=== PATIENT | male | born 2000 | race Caucasian/White ===

== ENCOUNTER → 2018-03-29 11:45 | Outpatient (CLI) | payer SELFPAY ==
--- NOTE | 2018-03-29 11:55 | CT_ITS ---
STUDY: CT MAXILLOFACIAL SINUSES REASON FOR EXAM: Male, 17 years old. Frontal and occipital pain. RADIATION DOSAGE (If Supplied By Facility): CTDIvol = ( 33.06 ) mGy, DLP = ( 837.98 ) mGycm TECHNIQUE: The patient was scanned in a multi detector CT scanner. High resolution axial imaging was performed without the administration of intravenous contrast material. Sagittal and coronal images were reconstructed. Individualized dose optimization techniques were used for this CT. COMPARISON: None. FINDINGS: FRONTAL SINUSES: Normal aeration, without mucosal inflammatory disease. ETHMOIDAL SINUSES: Mild mucosal thickening of the ethmoid sinuses. MAXILLARY SINUSES: Mucosal thickening of the maxillary sinus bilaterally slightly worse on the right side. SPHENOIDAL SINUSES: Normal aeration, without mucosal inflammatory disease. There is patency of the bilateral maxillary infundibuli with normal uncinate processes, ethmoid bullae, and hiatus semilunaris. Normal bilateral middle turbinates. There is hypertrophy of the bilateral inferior nasal turbinates. Normal midline nasal septum. There is patency of the bilateral nasal airways. The visualized osseous structures are normal. The visualized bilateral orbital contents are normal. CT/Sinus/Facial Bone IMPRESSION: Mild mucosal thickening of the ethmoid and maxillary sinuses are Hypertrophy of the inferior turbinates bilaterally. Electronically Signed: Luciano Short MD at 12:44 EDT Tel [phone], Service support ,
== END ==
PROVIDERS: Visit Provider Otolaryngology
DX: J32.2 Chronic ethmoidal sinusitis (principal); J32.0 Chronic maxillary sinusitis; J34.3 Hypertrophy of nasal turbinates; R51 Headache
CPT/HCPCS: 70486

== ENCOUNTER → 2018-10-11 15:03 | Outpatient (CLI) | payer SELFPAY ==
[2018-10-11 11:40] VITALS: BMI 20.7
--- OUTSIDE RECORDS SUMMARY | 2018-12-14 03:29 | XMS RPT_ITS ---
:2000 Author Organization [facility] Care Team Providers Name Role Phone Gee POON, Lesia Mckenna Attending Unavailable ROSE, MAHESH Primary Care Unavailable Khoa Schwab Attending Unavailable Khoa Schwab Referring Unavailable Primay Care Physicia, No Primary Care Unavailable Khoa Schwab Attending Unavailable Primay Care Physicia, No Referring Unavailable Primay Care Physicia, No Primary Care Unavailable Andrae Zamora Attending Unavailable Andrae Zamora Referring Unavailable Primay Care Physicia, No Primary Care Unavailable Khoa Schwab Attending Unavailable Primay Care Physicia, No Referring Unavailable Khoa Schwab Attending Unavailable Primay Care Physicia, No Referring Unavailable PROBLEMS PROBLEMS DATE TYPE CONDITION / CODE ATTENDING STATUS SOURCE 10/12/2018 Unknown J02.9 - Acute Khoa Schwab Active [place] pharyngitis, Community unspecified / Hospital J02.9(ICD-10) Repository 2018 Unknown R51 - Headache / Khoa Schwab Active [place] R51(ICD-10) [facility] Repository 2018 Unknown M62.838 - Other Khoa Schwab Active [facility] muscle spasm / Community M62.838(ICD-10) Hospital Repository 07/27/2018 Unknown G44.209 - Khoa Schwab Active [facility] Tension-type Community headache, Hospital unspecified, not Repository intractable / G44.209(ICD-10) 07/06/2018 Unknown J32.9 - Chronic Wartmann, Active [facility] sinusitis, Andrae Community unspecified / Hospital J32.9(ICD-10) Repository PROCEDURES PROCEDURES No Procedure Records FoundRESULTS RESULTS Observed: 10/11/2018 Status: F Source: [place] CULTURE, R/O STREP A 3:19 PM [facility] REPOSITORY BENJAMIN Culture * This cultures intended use is to screen for Beta Streptococcus A only. All other pathogens and potential pathogens will not be screened for or reported. If a complete workup of all potential pathogens is indicated an order for a routine throat culture is required. No Group A Beta Streptococcus isolated. Performed By: #### M100.010 #### [facility] [address] [place], [place], [id number] URGENT CARE VISIT Observed: 10/11/2018 Status: F Source: [place] REPORT 11:40 AM [facility] REPOSITORY [facility] [address] [place] [address] [address] [place], [place] [address] OFFICE VISIT Date of Service: 10/11/18 MR#: [id number] Acct: [id number] Name: RON CASTRO Merritt Rep #: [id number] : 2000 Provider: Khoa MORENO Age/Sex: 18/M [place] [facility] [place]: Signed Intake Vital Signs10/11/18 Height 6 ft 1 in 10/11/18 Weight: 157 lb 10/11/18 Body Mass Index (BMI) 20.7 10/11/18 Blood Pressure 110/78 10/11/18 Blood Pressure Location Lt brachial Intake Visit Reasons: SORE THROAT Chief Complaint: sore throat Rn Military Required: No Accompanied by: self Is patient in pain?: No Allergies amoxicillin Allergy (Verified 10/11/18 11:09) Unknown Medications cyclobenzaprine 5 mg tablet 5 mg PO TID PRN #30 tab 09/06/18 [Rx Confirmed 10/11/18] [facility] Medical History Migraines (Acute) Family History Grandfather Heart disease Social History Smoking Status: Never smoker alcohol intake: never HPI HPI Chief Complaint: sore throat Details: RON CASTRO, is a 18 M who presents to the office today for complaint of sore throat and nasal drainage for the past 24 hours. Patient is concerned for strep as he has had this multiple times in the past and is requesting a strep test at this time. He states the pain is sharp and made worse with swallowing. He denies fever, chills, sweats. No nausea, vomiting, diarrhea. He has not taken any medications for this current episode. No other associated symptoms or alleviating/aggravating factors. ROS Const Constitutional: No fever(s), headache(s), anorexia, chills or abnormal sleep pattern ENT ENT: Positive for post nasal drip, sore throat, nasal congestion and nasal discharge; no headache(s) or ear pain Resp Respiratory: No shortness of breath Cardio Cardiology: No irregular heart rhythm or palpitations Gastro GI: No nausea/dyspepsia Neuro Neurology: No headache(s) or behavioral changes Psych Psychiatric: No abnormal sleep pattern, No behavioral changes Exam Const General: cooperative, healthy appearing [facility] Head: normal to inspection Ears: hearing grossly normal bilaterally, TM's normal bilaterally, EAC's normal Nose: external nose normal, nasal discharge clear Mouth: oral mucosae normal Throat: abnormal tonsil bilaterally Resp Effort AND Inspection: normal respiratory effort Auscultation: Bilateral: Clear to Auscultation Cardio Palpation: normal PMI Rate: regular rate Rhythm: regular rhythm Neuro General: CN's II-XI intact bilaterally, alert Psych Appearance: grossly normal Mental Status: mental status grossly normal Results BMSRAPIDSTREPA Office Rapid Strep A Negative Last Edit by Melissa Johnson on 10/11/18 11:35 Assessment AND Plan Problems 1. Acute pharyngitis, unspecified etiology J02.9 Status Acute Plan Negative rapid strep in the office today, patient advised we will send the swab for culture and advise him of any positive results. Encouraged to get plenty of rest, drink lots of clear liquids, and use Tylenol or Ibuprofen (unless contraindicated) for fever and comfort. Patient also educated on other symptomatic management techniques. To be seen in 7-10 days if no improvement; sooner if worsening of symptoms. Patient advised of potential red flags and when appropriate to report to the ED. Patient verbalized understanding and agreement with all the above. Orders Orders: Coding Level of Care Code Off vis,est,level 3 Diagnoses Acute pharyngitis, unspecified etiology J02.9 Pharyngitis/tonsillitis etiology: unspecified etiology 10/11/18 1140 <Electronically signed by Khoa MORENO> Date Khoa MORENO Cosigner Signature: Date (if applicable) CC: URGENT CARE VISIT Observed: 09/07/2018 Status: F Source: [place] REPORT 8:35 AM [facility] REPOSITORY [facility] [address] [place] [address] OFFICE VISIT Date of Service: 09/06/18 MR#: [id number] Acct: [id number] Name: RON CASTRO Rep #: [id number] : 2000 Provider: Khoa MORENO Age/Sex: 18/M [place] [facility] [place] Status: Signed Intake Vital Signs09/06/18 Height 6 ft 1 in Intake Visit Reasons: HEADACHE/MIGRAINE Allergies amoxicillin Allergy (Verified 09/06/18 13:04) Unknown Medications cyclobenzaprine 5 mg tablet 5 mg PO TID PRN #30 tab 09/06/18 [Rx Confirmed 09/06/18] PFSH Medical History Migraines (Acute) Family History Grandfather Heart disease Social History Smoking Status: Never smoker alcohol intake: never HPI HPI Details: RON CASTRO, is a 18 M who presents to the office today for complaint of a recurrence of his tension type headache. Patient states that this headache is nearly the exact same as his previous tension type headache which she was treated here for in April of this year. He states that the Toradol injection as well as the cyclobenzaprine did take his headaches away and he has not had a recurrence until now. Patient states he has had shoulder and neck stiffness for the past 2-1/2 weeks and has been seen by a chiropractor during this time with little to no relief of the tension and headache. He denies any vision changes or difficulties. No syncopal or near syncopal episodes. No change in mental status. He has had no fever, chills, sweats. No other associated symptoms or alleviating/aggravating factors. ROS Const Constitutional: Positive for headache(s); no chills, fever(s), fatigue or abnormal sleep pattern Eyes Eyes: No blurry vision or change in vision ENT ENT: Positive for headache(s) and neck pain; no facial pain, sinus pain, dental pain, sore throat or ear pain Musc Musculoskeletal: Positive for stiffness, joint pain and neck pain; no tingling, numbness or muscle weakness Skin Skin: No wounds or lesions Neuro Neurology: Positive for headache(s); no tingling or numbness Psych Psychiatric: No abnormal sleep pattern Endo Endocrine: No fatigue Exam Const General: cooperative, healthy appearing [facility] Head: normocephalic, atraumatic Ears: hearing grossly normal bilaterally Nose: external nose normal Face and sinus: face symmetric, normal facial exam Mouth: oral mucosae normal Throat: posterior oropharynx normal Eyes General: appearance normal, both eyes and all related structures Visual Bonilla: normal visual bonilla by confrontation Alignment and Position: alignment normal Pupils: PERRL EOM: EOM intact bilaterally Resp Effort AND Inspection: normal respiratory effort Auscultation: Bilateral: Clear to Auscultation Cardio Palpation: normal PMI Rate: regular rate Rhythm: regular rhythm Musc Musculoskeletal: No muscle weakness Cervical Spine: cervical ROM normal, cervical spasm (Trapezius muscle spasm particularly on the left with tenderness to palp), cervical muscular tenderness and normal cervical lordosis Thoracic/Lumbar Spine: thoracic and lumbar spine normal to inspection, thoraco-lumbar ROM normal Skin General: no rashes or lesions noted Neuro General: alert, CN's II-XI intact bilaterally, oriented x3, moves all extremities, tone normal Cognition: normal cognition Gait: normal gait Motor: muscle tone normal throughout Sensory Exam: no sensory deficits noted Psych Appearance: grossly normal Mental Status: mental status grossly normal Office Meds ketorolac Performing Provider: TIFFANIE Solis Administered by: Angelique Tanner on 09/06/18 13:38 Dose Route Admin Location Lot Number Expiration Date NDC Office Messenger 60 mg IM L buttock [id number] 03/20/20 54223-094-62 [employer] Assessment AND Plan Problems 1. Acute non intractable tension-type headache G44.209 2. Muscle spasm of shoulder region M62.838 Plan 60 mg Toradol IM once as well as cyclobenzaprine as prescribed today. Patient advised to use warm compresses several times daily to the back of the neck as well as given range of motion stretches and exercises to do at home. Patient advised to follow-up with his PCP in 5-7 days if no better sooner if worse. Patient advised of potential red flags and when appropriate to report to the ED. Patient verbalized understanding and agreement with all the above. Orders Orders: Medications New: Discontinued: ketorolac Discontinued Reason: Office Medication has been D30 mg IM ONCE 2 mL 0RF R51 ocumented as given Coding Level of Care Code Off vis,est,level 3 Diagnoses Acute non intractable tension-type headache G44.209 Headache chronicity pattern: acute headache Intractability: not intractable Muscle spasm of shoulder region M62.838 09/07/18 0835 <Electronically signed by Khoa MORENO> Date Khoa MORENO Cosigner Signature: Date (if applicable) CC: URGENT CARE VISIT Observed: 04/27/2018 Status: F Source: [place] REPORT 9:24 AM [facility] [address] [place] [address] OFFICE VISIT Date of Service: 04/27/18 MR#: [id number] Acct: [id number] Name: RON CASTRO Rep #: [id number] : 2000 Provider: Khoa MORENO Age/Sex: 17/M [place] [facility] [place] Status: Signed Intake Vital Signs04/27/18 Height 6 ft 0.5 in Intake Visit Reasons: MIGRAINE Allergies amoxicillin Allergy (Verified 04/27/18 08:59) Unknown Medications cyclobenzaprine 5 mg tablet 5 mg PO TID PRN #30 tab 04/27/18 [Rx Confirmed 04/27/18] PFSH Medical History Migraines (Acute) Family History Grandfather Heart disease Social History Smoking Status: Never smoker alcohol intake: never HPI HPI Details: RON CASTRO, is a 17 M who presents to the office today for headache for the past 3 or 4 days. Patient states that he has had the headache for the entire 3-4 days with some relief however the headache never going completely away. He additionally states he has tightness in his neck and shoulders. He localizes the pain of the headache to the back of the head bilaterally. He denies any photophobia, phonophobia or any other aura. He does report using multiple [id number]-yns-ibbljye pain medications with little relief. He denies any change in vision or mental status. No other associated symptoms or alleviating/aggravating factors. ROS Const Constitutional: Positive for headache(s); no chills, fever(s), fatigue or abnormal sleep pattern ENT ENT: Positive for headache(s) Musc Musculoskeletal: Positive for stiffness and joint pain; no tingling, numbness or muscle weakness Skin Skin: No wounds or lesions Neuro Neurology: Positive for headache(s); no behavioral changes, confusion, tingling or numbness Psych Psychiatric: No behavioral changes, No confusion, No abnormal sleep pattern Endo Endocrine: No fatigue Exam Const General: cooperative, healthy appearing Neck Neck: full ROM, no lymphadenopathy, normal visual inspection, no meningeal signs Lymphatic: no lymphadenopathy noted Other: Mild tenderness to palpation over the posterior neck and shoulder muscles with several muscle spasms palpated. Musc Musculoskeletal: No muscle weakness Skin General: no rashes or lesions noted Neuro General: alert, CN's II-XI intact bilaterally Psych Appearance: grossly normal Mental Status: mental status grossly normal Office Meds ketorolac Performing Provider: TIFFANIE Solis Administered by: Angelique Tanner on 04/27/18 09:12 Dose Route Admin Location Lot Number Expiration Date NDC Office Messenger 60 mg IM L buttock [id number] 09/21/19 4204-9707-10 HOSP[facility] Comments: Ketorolac 30mg/ml, 2 ml given L buttock Assessment AND Plan Problems 1. Acute non intractable tension-type headache G44.209 Status Acute 2. Muscle spasm of shoulder region M62.838 Status Acute Plan Toradol IM as given the office today as well as cyclobenzaprine as prescribed. Patient advised of tension type headache symptoms and management. Advised to follow-up with his PCP in 5-7 days if no better or sooner if worse. Advised of potential red flags and when appropriate report to the ED. Patient verbalized understanding of all the above Orders Orders: Medications New: Discontinued: ketorolac Discontinued Reason: Office Rewlzfx58 mg (4 mL) IM ONCE R51 Angelique Tanner ion has been Documented as given Coding Level of Care Code Off vis,new,level 3 Diagnoses Acute non intractable tension-type headache G44.209 Headache chronicity pattern: acute headache Intractability: not intractable Muscle spasm of shoulder region M62.838 04/27/18 0924 <Electronically signed by Khoa MORENO> Date Khoa MORENO Cosigner Signature: Date (if applicable) CC: SINUS/FACIAL BONE Observed: 03/29/2018 Status: F Source: [place] 11:57 AM [facility] REPOSITORY [facility] Imaging Services [facility] [place] [address] Sinus/Facial Bone MR#: [id number] Acct: [id number] Name: RON CASTRO Rep #: [id number] : 2000 M 17 From: Luciano Short MD PCP: Care Physician, No Primary Status: REG CLI Study: Sinus/Facial Bone Date of Exam: 03/29/18 Exam# [id number] Ordering Dr: Andrae Zamora MD STUDY: CT MAXILLOFACIAL SINUSES REASON FOR EXAM: Male, 17 years old. Frontal and occipital pain. RADIATION DOSAGE (If Supplied By Facility): CTDIvol = ( 33.06 ) mGy, DLP = ( 837.98 ) mGycm TECHNIQUE: The patient was scanned in a multi detector CT scanner. High resolution axial imaging was performed without the administration of intravenous contrast material. Sagittal and coronal images were reconstructed. Individualized dose optimization techniques were used for this CT. COMPARISON: None. FINDINGS: FRONTAL SINUSES: Normal aeration, without mucosal inflammatory disease. ETHMOIDAL SINUSES: Mild mucosal thickening of the ethmoid sinuses. MAXILLARY SINUSES: Mucosal thickening of the maxillary sinus bilaterally slightly worse on the right side. SPHENOIDAL SINUSES: Normal aeration, without mucosal inflammatory disease. There is patency of the bilateral maxillary infundibuli with normal uncinate processes, ethmoid bullae, and hiatus semilunaris. Normal bilateral middle turbinates. There is hypertrophy of the bilateral inferior nasal turbinates. Normal midline nasal septum. There is patency of the bilateral nasal airways. The visualized osseous structures are normal. The visualized bilateral orbital contents are normal. CT/Sinus/Facial Bone IMPRESSION: Mild mucosal thickening of the ethmoid and maxillary sinuses are Hypertrophy of the inferior turbinates bilaterally. Electronically Signed: Luciano Short MD at 12:44 EDT Tel [phone], Service support , CC: No Primary Care Physician; Raman Zamora MD Journeyman Pipe Welder: Signed Observed: 11/09/2017 Status: F Source: [facility] 7:01 PM [facility] REPOSITORY . MICRO - Microbiology PROCEDURE: Beta Strep Antigen with Cult if Ind [*1] SOURCE: Throat BODY SITE: COLLECTED DATE/TIME: 11/09/2017 19:01 EST RECEIVED DATE/TIME: 11/09/2017 19:06 EST START DATE/TIME: 11/09/2017 19:06 EST FREE TEXT SOURCE: FINAL REPORTS Final Report [] Verified Date/Time/Personnel: 11/09/2017 19:12 EST Antigen Screen: Negative for Group A Strep. Culture confirmation to follow. COMMENT: Recommendations suggest that all negative results be confirmed with culture. Performing Locations *1: This test was performed at: [id number] [place] [address] Performed By: #### BSA #### [place] [address] Observed: 11/09/2017 Status: F Source: [facility] 6:49 PM [facility] REPOSITORY . MICRO - Microbiology PROCEDURE: Culture Beta Strep Only [O1 *1] SOURCE: Throat BODY SITE: COLLECTED DATE/TIME: 11/09/2017 18:49 EST RECEIVED DATE/TIME: 11/09/2017 19:12 EST START DATE/TIME: 11/09/2017 19:12 EST FREE TEXT SOURCE: FINAL REPORTS Final Report [] Verified Date/Time/Personnel: 11/12/2017 08:14 EST No Beta Strep isolated at 48hrs. Sensitivity testing not indicated. PRELIMINARY REPORTS Preliminary Report [] Verified Date/Time/Personnel: 11/11/2017 14:04 EST No beta Strep isolated at 24 hours. Order Comments O1: Culture Beta Strep Only Order added by [email or web address] Performing Locations *1: This test was performed at: [address], [address] [place] [address] Performed By: #### BSO #### [place] [address] ALLERGIES ALLERGIES DATE TYPE / CODE NAME / CODE REACTION SEVERITY SOURCE 10/11/2018 Drug amoxicillin/ Unknown Unknown [facility] Allergy/4160 [id number](R Hospital 16275(SNOMED XNORM) Repository CT) ENCOUNTERS ENCOUNTERS ADMIT/DISCHARGE ACCOUNT NUMBER ADMITTING ENCOUNTER LOCATION SOURCE CLASS 10/11/2018 [id number] Ambulatory [facility] ding:LABSPEC Repository 10/11/2018/10/11/19 [id number] Ambulatory BMSBuilding: [place] [facility] BMS.[facility] Repository 09/06/2018/09/06/20 [id number] Ambulatory BMSBuilding: [place] 18 BMS.[facility] Repository 04/27/2018/04/27/20 [id number] Ambulatory BMSBuilding: [place] 18 BMS.[facility] Repository 03/29/2018 [id number] Ambulatory [facility] ding:CT Repository 11/09/2017/11/09/19 [id number] [facility] Repository PAYERS PAYERS ENCOUNTER GUARANTOR PAYER SUBSCRIBER SOURCE 10/11/2018 RON Bang Primary NOT GIVENUNK [place] [id number] Insurance:SELF PAY [place], [place] Number: Effective Repository [id number]: [phone] Date:2018-10-11 [phone] (HP) 10/11/2018 RON Bang Primary NOT GIVENUNK [place] [id number] Insurance:SELF PAY [place] Number: Effective Repository [id number]: [phone]) Date:2018-10-11 [phone] (HP) 2018 [place] R Primary NOT GIVENUNK [place] [id number] Insurance:SELF PAY [place] Number: Effective Repository [phone]: ([phone] Date:[phone] (HP) 04/27/2018 RON Bang Primary [place] R [place] [id number] [place] Number: Repository [id number]: [phone] [id number] [phone] (HP) Date: [address] [address]PT: 04/27/2018 Secondary NOT GIVENUNK [place] Insurance:SELF PAY [facility] Number: Effective Repository Date:2018-04-27 03/29/2018 RON Bang Primary Insurance:[facility] RON Bang [place] [id number] PACKAGE PLANPoly MILLERDOB: [facility] Number: [id number] [id number] Repository [id number]: [phone]) Date:2018-03-29 [phone] () 03/29/2018 Secondary NOT GIVENUNK [place] Insurance:SELF PAY [facility] Number: Effective Repository Date:2018-03-29 11/09/2017 RON Bang Primary RON Bang [facility] MILLERDOB: Insurance:SELF MILLERDOB: [facility] [id number] PAYPolicy Number: [id number] [facility]ository [facility] Effective [address] [place] [address] Date:2017-11-09 - [facility], [address]Bby: [phone] Name:[facility] [address]Tfm: [phone] ()Tel: [phone] (HP) [phone] ()
== END ==
PROVIDERS: Referring Provider Physician Assistant Surgical; Visit Provider Physician Assistant Surgical
DX: J02.9 Acute pharyngitis, unspecified (principal)
CPT/HCPCS: 87081

== ENCOUNTER → 2019-04-15 17:36 | Outpatient (CLI) | payer SELFPAY ==
[2018-10-11 11:40] VITALS: BMI 20.7
--- NOTE | 2019-04-15 18:15 | MRI_ITS ---
HISTORY: Chronic neck pain and headache. EXAM/TECHNIQUE: MR Spine Cervical W/O Contrast: Multiplanar, multisequence. 1.5 Marguerite. COMPARISON: None. FINDINGS: # of images incl. paperwork: 267 No fracture or acute or concerning signal changes in the vertebrae, disks, ligaments, or paraspinal soft tissues. Normal contour and signal of the cervical spinal cord. No spinal canal or foraminal narrowing. MRI/Spine Cervical (Routine) IMPRESSION: Normal MRI cervical spine without contrast. at 2212 Reported and signed by: Yoni Fitzpatrick MD Electronically Signed: Yoni Fitzpatrick, at 22:11 EDT Tel , Service support ,
== END ==
DX: R51 Headache (principal)
CPT/HCPCS: 72141

== ENCOUNTER → 2019-04-28 06:40 | Outpatient (CLI) | payer SELFPAY ==
[2018-10-11 11:40] VITALS: BMI 20.7
--- NOTE | 2019-04-28 06:46 | CT_ITS ---
STUDY: CT BRAIN WITHOUT CONTRAST REASON FOR EXAM: Male, 18 years old. Long-standing headaches RADIATION DOSAGE (If Supplied By Facility): CTDIvol = ( 44.99 ) mGy, DLP = ( 796.11 ) mGycm TECHNIQUE: Transaxial CT imaging of the brain was performed without administration of intravenous contrast material. Individualized dose optimization techniques were used for this CT. COMPARISON: No relevant priors. FINDINGS: Normal soft tissue structures. Normal calvarium. Normal size ventricles and extra-axial spaces for the patient's age. Normal white matter tracts of the cerebral hemispheres. Normal basal ganglia and thalami. Normal brainstem. Normal cerebellum. There is no intracranial hemorrhage. There are no findings of an acute ischemic infarction. Normal visualized paranasal sinuses. CT/Brain/Head without Contrast IMPRESSION: Normal unenhanced CT scan of the brain. Electronically Signed: Emanuel Gutierrez DO at 7:44 EDT Tel , Service support ,
== END ==
DX: R51 Headache (principal); M54.2 Cervicalgia
CPT/HCPCS: 70450